=== PATIENT | male | born 1975 | race African-American/Black ===

== ENCOUNTER 2023-10-25 12:30 | Inpatient (IN) | payer OTHER ==
[2023-11-08] MEDS ORDERED: fentaNYL 50 mcg/mL 1 mL Vial ONE ×3 (10:42→14:48)
[2023-11-08] MEDS ORDERED: Midazolam HCl 2 mg/2 ml Vial ONE (10:42)
[2023-11-08] MEDS ORDERED: fentaNYL PF 100 MCG/2 ML SYRINGE ONE ×3 (11:08→14:38)
[2023-11-08] MEDS ORDERED: Phenylephrine 40 MG/NS 250 ML 250 ML ONE (11:11)
[2023-11-08] MEDS ORDERED: Sodium Chloride 0.9% 100 ML ONE (11:16)
[2023-11-08] MEDS ORDERED: CEFAZOLIN 2 GM VIAL ONE (11:16)
[2023-11-08] MEDS ORDERED: PHENYLEPHRINE-NS 100 MCG/ML 10 ML SYRINGE ONE (11:22)
[2023-11-08] MEDS ORDERED: ePHEDrine Sulfate 50 MG/10 ML VIAL ONE (11:34)
[2023-11-08] MEDS ORDERED: HYDROcodone/Acetaminophen 5/325 mg Tablet PO PRN (11:45)
[2023-11-08] MEDS ORDERED: Naloxone HCl 0.4 mg/ml Vial IV PRN (11:45)
[2023-11-08] MEDS ORDERED: Promethazine HCl 25 MG/ML VIAL IM PRN (11:45)
[2023-11-08] MEDS ORDERED: Promethazine HCl 25 MG SUPP PR PRN (11:45)
[2023-11-08] MEDS ORDERED: Moisturizing Cream (Eucerin) 113 GM JAR TOP PRN (11:45)
[2023-11-08] MEDS ORDERED: traMADol HCl 50 MG TAB PO PRN (11:45)
[2023-11-08] MEDS ORDERED: diphenhydrAMINE 50 MG/ML VIAL IM PRN (11:45)
[2023-11-08] MEDS ORDERED: diphenhydrAMINE 25 MG CAP PO PRN (11:45)
[2023-11-08] MEDS ORDERED: diphenhydrAMINE 50 MG/ML VIAL IVP PRN (11:45)
[2023-11-08] MEDS ORDERED: Bupivacaine 0.25% 10 ML VIAL EPIDURAL PRN (11:45)
[2023-11-08] MEDS ORDERED: Naloxone HCl 0.4 mg/ml Vial IVP PRN (11:45)
[2023-11-08] MEDS ORDERED: Lidocaine 1% PF 5 ML VIAL ONE (11:54)
[2023-11-08] MEDS ORDERED: Lidocaine 1.5% w/Epi 1:200K 30 ML VIAL (Epid Use) ONE (11:54)
[2023-11-08] MEDS ORDERED: Rocuronium Bromide 10 MG/ML (10ML VIAL) ONE (11:54)
[2023-11-08] MEDS ORDERED: Dexamethasone 4 mg/ml Vial ONE (12:05)
[2023-11-08] MEDS ORDERED: Labetalol HCl 100 MG/20 ML VIAL ONE (12:21)
[2023-11-08] MEDS ORDERED: PROPOFOL 0 ML ONE (12:47)
[2023-11-08] MEDS ORDERED: Ondansetron PF 4 MG/2 ML Vial ONE (14:04)
[2023-11-08] MEDS ORDERED: SUGAMMADEX SODIUM 200 MG/2 ML VIAL ONE (14:04)
[2023-11-08] MEDS ORDERED: Meperidine HCl/PF 25 MG (1 mL) VIAL ONE (14:53)
[2023-11-08] MEDS ORDERED: Mag-Al 1200 mg/1200 mg/30 ML UDCUP PO PRN (15:03)
[2023-11-08] MEDS ORDERED: Bisacodyl 10 MG SUPP PR PRN (15:03)
[2023-11-08 15:46] LABS: Hematocrit 36.1 % (42.0-52.0); Hemoglobin 11.4 g/dL (14.0-18.0); Mean Corpuscular HGB CONC 31.6 g/dL (32.0-36.0); Mean Corpuscular Hemoglobin 28.1 pg (27.0-31.0); Mean Corpuscular Volume 88.9 fL (78.0-98.0); Mean Platelet Volume 9.8 fL (7.4-10.4); Platelet Count 195 10x3/uL (130-400); Red Blood Cell (RBC) Count 4.06 mill/uL (4.70-6.10)
[2023-11-08 16:02] LABS: Anion Gap 9 mmol/L (10-20); BUN (Urea Nitrogen) 13 mg/dL (8.9-20.6); Calc. Creatinine Clearance 81 mL/min (70-130); Calcium 8.2 mg/dL (7.8-10.44); Carbon Dioxide 21 mmol/L (22-29); Chloride 113 mmol/L (98-107); Estimated GFR 67; Glucose 105 mg/dL (70-105); Potassium 4.2 mmol/L (3.5-5.1); Sodium 139 mmol/L (136-145)
[2023-11-09] MEDS: Ondansetron PF 4 MG/2 ML Vial IVP PRN (00:13)
[2023-11-09] MEDS: CEFAZOLIN 1 GM in Sodium Chloride 0.9% 100 ML IVPB SCH (00:14)
[2023-11-09] MEDS: Docusate 100 MG CAP PO SCH (00:15)
[2023-11-09] MEDS: Sodium Chloride 0.9% 1,000 ML IV SCH (00:15)
[2023-11-09] MEDS: Acetaminophen 325 MG TAB PO SCH (00:16)
[2023-11-09 03:59] LABS: #Basophils Less than 0.03 10x3/uL (0.0-0.2); #Eosinophils Less than 0.03 10x3/uL (0.0-0.7); %Basophils 0.1 % (0.0-1.0); %Lymphocytes 7.9 % (21.0-51.0); %Monocytes 9.9 % (0.0-10.0); %Neutrophils 81.7 % (42.0-75.0); Hematocrit 28.1 % (42.0-52.0); Hemoglobin 8.6 g/dL (14.0-18.0); Mean Corpuscular HGB CONC 30.6 g/dL (32.0-36.0); Mean Corpuscular Volume 91.5 fL (78.0-98.0); Mean Platelet Volume 10.1 fL (7.4-10.4); Platelet Count 226 10x3/uL (130-400); RBC Distribution Width 14.2 % (11.5-14.5); Red Blood Cell (RBC) Count 3.07 mill/uL (4.70-6.10)
[2023-11-09 04:15] LABS: Anion Gap 16 mmol/L (10-20); BUN (Urea Nitrogen) 20 mg/dL (8.9-20.6); Calc. Creatinine Clearance 60 mL/min (70-130); Calcium 8.2 mg/dL (7.8-10.44); Carbon Dioxide 21 mmol/L (22-29); Chloride 108 mmol/L (98-107); Estimated GFR 45; Glucose 142 mg/dL (70-105); Potassium 5.9 mmol/L (3.5-5.1); Sodium 139 mmol/L (136-145)
[2023-11-09] MEDS: FENTANYL 500 MCG/10 ML VIAL 500 MCG, Bupivacaine 0.75% 10 ML in Sodium Chloride 0.9% 80 ML EPIDURAL SCH (04:50)
[2023-11-09] MEDS: hydrALAZINE 20 MG/ML VIAL SLOW IVP PRN (18:10)
[2023-11-09 18:52] LABS: Actual Bicarbonate (HCO3a) 22.3 mEq/L (22-28); Analyzer IN Cardio OR; Base Excess (BEa) -1.8 mEq/L (-2.0 to +3.0); CO2 Tension 35.6 mmHg (35.0-45.0); Calcium, Ionized (arterial) 1.12 mmol/L (1.12-1.30); Carboxyhemoglobin (COHb) 0.7 gm% (0.0-3.0); Hematocrit-ABG 34 % (42.0-52.0); Hemoglobin (Hb) 11.7 g/dL (14.0-18.0); O2 Tension (PaO2), arterial 394.5 mmHg (80.0-100.0); Potassium - ABG Lab 4.26 mmol/L (3.70-5.30); Puncture Site Arterial Line; pH, Arterial 7.415 (7.35-7.45)
[2023-11-09 20:39] LABS: #Basophils Less than 0.03 10x3/uL (0.0-0.2); %Basophils 0.2 % (0.0-1.0); %Eosinophils 0.3 % (0.0-10.0); %Lymphocytes 16.3 % (21.0-51.0); %Neutrophils 70.9 % (42.0-75.0); Hematocrit 22.9 % (42.0-52.0); Hemoglobin 7.3 g/dL (14.0-18.0); Mean Corpuscular HGB CONC 31.9 g/dL (32.0-36.0); Mean Corpuscular Hemoglobin 28.4 pg (27.0-31.0); Mean Corpuscular Volume 89.1 fL (78.0-98.0); Mean Platelet Volume 10.2 fL (7.4-10.4); Platelet Count 185 10x3/uL (130-400); RBC Distribution Width 14.4 % (11.5-14.5); Red Blood Cell (RBC) Count 2.57 mill/uL (4.70-6.10)
[2023-11-09 20:54] LABS: ALT (SGPT) 17 U/L (8-55); AST (SGOT) 32 U/L (5-34); Albumin 3.1 g/dL (3.5-5.0); Alkaline Phosphatase 50 U/L (40-110); Anion Gap 12 mmol/L (10-20); BUN (Urea Nitrogen) 20 mg/dL (8.9-20.6); Bilirubin, Total 0.2 mg/dL (0.2-1.2); Calc. Creatinine Clearance 70 mL/min (70-130); Calcium 8.7 mg/dL (7.8-10.44); Carbon Dioxide 24 mmol/L (22-29); Chloride 108 mmol/L (98-107); Estimated GFR 54; Globulin 2.4 g/dL (2.4-3.5); Glucose 111 mg/dL (70-105); Potassium 4.4 mmol/L (3.5-5.1); Protein, Total 5.5 g/dL (6.0-8.3); Sodium 140 mmol/L (136-145)
[2023-11-10 03:55] LABS: #Basophils 0.03 10x3/uL (0.0-0.2); %Basophils 0.3 % (0.0-1.0); %Eosinophils 0.7 % (0.0-10.0); %Lymphocytes 17.9 % (21.0-51.0); %Monocytes 12.4 % (0.0-10.0); %Neutrophils 68.4 % (42.0-75.0); Hemoglobin 7.4 g/dL (14.0-18.0); Mean Corpuscular HGB CONC 32.2 g/dL (32.0-36.0); Mean Corpuscular Hemoglobin 28.8 pg (27.0-31.0); Mean Corpuscular Volume 89.5 fL (78.0-98.0); Mean Platelet Volume 10.3 fL (7.4-10.4); Platelet Count 161 10x3/uL (130-400); RBC Distribution Width 14.4 % (11.5-14.5); Red Blood Cell (RBC) Count 2.57 mill/uL (4.70-6.10)
[2023-11-10 04:11] LABS: Anion Gap 11 mmol/L (10-20); BUN (Urea Nitrogen) 19 mg/dL (8.9-20.6); Calc. Creatinine Clearance 68 mL/min (70-130); Calcium 8.7 mg/dL (7.8-10.44); Carbon Dioxide 22 mmol/L (22-29); Chloride 110 mmol/L (98-107); Estimated GFR 53; Glucose 94 mg/dL (70-105); Potassium 4.6 mmol/L (3.5-5.1); Sodium 138 mmol/L (136-145)
[2023-11-10] MEDS: Amlodipine 5 MG TAB PO SCH (09:20)
[2023-11-10] MEDS: traMADol HCl 50 MG TAB PO PRN (11:45)
[2023-11-10] MEDS: Oxybutynin 5 MG TAB PO PRN (11:50)
[2023-11-10 13:22] LABS: Hematocrit 24.8 % (42.0-52.0); Mean Corpuscular HGB CONC 32.3 g/dL (32.0-36.0); Mean Corpuscular Hemoglobin 28.5 pg (27.0-31.0); Mean Corpuscular Volume 88.3 fL (78.0-98.0); Platelet Count 187 10x3/uL (130-400); RBC Distribution Width 14.6 % (11.5-14.5); Red Blood Cell (RBC) Count 2.81 mill/uL (4.70-6.10)
[2023-11-10] MEDS: EPOETIN ALFA-EPBX (ESRD) 10,000 UNITS/ML VIAL SC SCH (14:15)
[2023-11-10] MEDS: EPOETIN ALFA-EPBX (ESRD) 40,000 UNITS/ML VIAL SC SCH (15:00)
[2023-11-10] MEDS: cloNIDine 0.1 MG TAB PO PRN (15:30)
[2023-11-10] MEDS: Labetalol HCl 100 MG/20 ML VIAL SLOW IVP SCH (21:28)
[2023-11-10 22:12] LABS: Hemoglobin 7.7 g/dL (14.0-18.0); Mean Corpuscular HGB CONC 32.1 g/dL (32.0-36.0); Mean Corpuscular Hemoglobin 28.5 pg (27.0-31.0); Mean Corpuscular Volume 88.9 fL (78.0-98.0); Mean Platelet Volume 10.1 fL (7.4-10.4); Platelet Count 190 10x3/uL (130-400); RBC Distribution Width 14.6 % (11.5-14.5)
[2023-11-11 04:58] LABS: #Basophils 0.04 10x3/uL (0.0-0.2); %Basophils 0.4 % (0.0-1.0); %Eosinophils 0.4 % (0.0-10.0); %Lymphocytes 10.9 % (21.0-51.0); %Monocytes 9.9 % (0.0-10.0); %Neutrophils 78.1 % (42.0-75.0); Hematocrit 23.5 % (42.0-52.0); Hemoglobin 7.7 g/dL (14.0-18.0); Mean Corpuscular HGB CONC 32.8 g/dL (32.0-36.0); Mean Corpuscular Hemoglobin 29.2 pg (27.0-31.0); Mean Platelet Volume 10.1 fL (7.4-10.4); Platelet Count 189 10x3/uL (130-400); RBC Distribution Width 14.4 % (11.5-14.5); Red Blood Cell (RBC) Count 2.64 mill/uL (4.70-6.10)
[2023-11-11 05:02] LABS: Anion Gap 12 mmol/L (10-20); BUN (Urea Nitrogen) 16 mg/dL (8.9-20.6); Calc. Creatinine Clearance 76 mL/min (70-130); Carbon Dioxide 24 mmol/L (22-29); Chloride 105 mmol/L (98-107); Estimated GFR 60; Glucose 107 mg/dL (70-105); Potassium 4.8 mmol/L (3.5-5.1); Sodium 136 mmol/L (136-145)
[2023-11-11 05:29] VITALS: BMI 26.6
[2023-11-11] MEDS: HYDROcodone/Acetaminophen 5/325 mg Tablet PO PRN (20:10)
[2023-11-12 06:09] LABS: #Basophils 0.06 10x3/uL (0.0-0.2); %Basophils 0.9 % (0.0-1.0); %Eosinophils 2.5 % (0.0-10.0); %Lymphocytes 15.7 % (21.0-51.0); %Monocytes 11.1 % (0.0-10.0); %Neutrophils 69.4 % (42.0-75.0); Hematocrit 22.5 % (42.0-52.0); Hemoglobin 7.2 g/dL (14.0-18.0); Mean Corpuscular Hemoglobin 28.3 pg (27.0-31.0); Mean Corpuscular Volume 88.6 fL (78.0-98.0); Mean Platelet Volume 10.1 fL (7.4-10.4); Platelet Count 185 10x3/uL (130-400); Red Blood Cell (RBC) Count 2.54 mill/uL (4.70-6.10)
[2023-11-12 06:34] LABS: Anion Gap 9 mmol/L (10-20); BUN (Urea Nitrogen) 16 mg/dL (8.9-20.6); Calc. Creatinine Clearance 72 mL/min (70-130); Calcium 9.1 mg/dL (7.8-10.44); Carbon Dioxide 27 mmol/L (22-29); Chloride 104 mmol/L (98-107); Estimated GFR 60; Glucose 93 mg/dL (70-105); Potassium 4.2 mmol/L (3.5-5.1); Sodium 136 mmol/L (136-145)
[2023-11-12 08:17] LABS: Hematocrit 22.3 % (42.0-52.0); Hemoglobin 7.1 g/dL (14.0-18.0); Mean Corpuscular HGB CONC 31.8 g/dL (32.0-36.0); Mean Corpuscular Hemoglobin 28.3 pg (27.0-31.0); Mean Corpuscular Volume 88.8 fL (78.0-98.0); Mean Platelet Volume 9.4 fL (7.4-10.4); Platelet Count 177 10x3/uL (130-400); Red Blood Cell (RBC) Count 2.51 mill/uL (4.70-6.10)
[2023-11-13 04:36] LABS: #Basophils 0.03 10x3/uL (0.0-0.2); %Basophils 0.5 % (0.0-1.0); %Eosinophils 2.6 % (0.0-10.0); %Lymphocytes 14.5 % (21.0-51.0); %Monocytes 13.8 % (0.0-10.0); Hemoglobin 7.2 g/dL (14.0-18.0); Mean Corpuscular HGB CONC 32.7 g/dL (32.0-36.0); Mean Corpuscular Hemoglobin 28.6 pg (27.0-31.0); Mean Corpuscular Volume 87.3 fL (78.0-98.0); Platelet Count 191 10x3/uL (130-400); RBC Distribution Width 13.6 % (11.5-14.5); Red Blood Cell (RBC) Count 2.52 mill/uL (4.70-6.10)
[2023-11-13 04:56] LABS: Anion Gap 10 mmol/L (10-20); BUN (Urea Nitrogen) 20 mg/dL (8.9-20.6); Calc. Creatinine Clearance 68 mL/min (70-130); Calcium 9.3 mg/dL (7.8-10.44); Carbon Dioxide 27 mmol/L (22-29); Chloride 102 mmol/L (98-107); Estimated GFR 58; Glucose 101 mg/dL (70-105); Potassium 3.5 mmol/L (3.5-5.1); Sodium 135 mmol/L (136-145)
[2023-11-13 15:26] VITALS: BP 146/83; TEMP 99.3
== END 2023-11-13 15:30 | disposition home or self-care (01) | DRG 657 ==
LOC: SURG A 11-08 09:39 → EDSTATUS 11-08 15:30 → IMCU/EMU 11-08 19:21 → MSONC 11-12 19:03
PROVIDERS: ADMIT Urology; ATTEND Urology
PROC: 0TT00ZZ Resection of Right Kidney, Open Approach (ICD-10-PCS; principal; 2023-11-08)
PROC: 4A033R1 Measurement of Arterial Saturation, Peripheral, Percutaneous Approach (ICD-10-PCS; 2023-11-08)
PROC: 30233N1 Transfusion of Nonautologous Red Blood Cells into Peripheral Vein, Percutaneous Approach (ICD-10-PCS; 2023-11-09)
DX: C64.1 Malignant neoplasm of right kidney, except renal pelvis (principal); E87.20 Acidosis, unspecified; N17.9 Acute kidney failure, unspecified; N28.89 Other specified disorders of kidney and ureter; I10 Essential (primary) hypertension; D50.0 Iron deficiency anemia secondary to blood loss (chronic); Z86.73 Personal history of transient ischemic attack (TIA), and cerebral infarction without residual deficits
CPT/HCPCS: 36415; 36416; 36430; 71045; 74176; 80048; 82805; 85025; 85027; 85046; 86850; 86900; 86901; 88307; 88341; 88342; A4314; A4649; C1713; C1776; C1889; J0360; J0690; J1100; J2001; J2175; J2250; J2405; J2704; J3010; J3490; J7030; P9016; Q5105